=== PATIENT | female | born 1985 | race Caucasian/White ===

== ENCOUNTER 2017-11-11 11:35 | Observation (INO) | payer OTHER ==
[~2017-11-11] VITALS: Ht 162.6 cm; Wt 77.1 kg
== END 2017-11-11 12:45 | disposition home or self-care (01) ==
LOC: SPU 11:38
PROVIDERS: ADMIT Specialist; ATTEND Specialist
DX: O21.2 Late vomiting of pregnancy (principal); Z3A.28 28 weeks gestation of pregnancy
CPT/HCPCS: G0378

== ENCOUNTER 2018-01-09 11:15 | Inpatient (IN) | payer OTHER ==
[~2018-01-09] VITALS: Ht 162.6 cm; Wt 82.6 kg
[2018-01-09] MEDS ORDERED: LR 1,000 ML IV ONE (12:15)
[2018-01-09] MEDS ORDERED: CEFAZOLIN 2 GM IVPB PREMIX 50 ML IV ONE (12:15)
[2018-01-09 12:20] VITALS: BP_SYST 110
[2018-01-09 12:49] LABS: BASOPHILS # (AUTO) 0.1 K/uL (0.0-0.2); BASOPHILS % (AUTO) 1.1 % (0.0-2.0); EOSINOPHILS # (AUTO) 0.1 K/uL (0.0-0.4); EOSINOPHILS % (AUTO) 0.6 % (0.0-4.0); HEMATOCRIT 35.4 % (36-48); HEMOGLOBIN 11.8 g/dL (12.0-16.0); LYMPHOCYTES # (AUTO) 1.8 K/uL (1.0-5.5); LYMPHOCYTES % (AUTO) 15.8 % (20.5-51.5); MEAN CORPUSCULAR HEMOGLOBIN 30 pg (27-31); MEAN CORPUSCULAR HGB CONC 33 % (32-36); MEAN CORPUSCULAR VOLUME 89 fL (79.0-98.0); MONOCYTES # (AUTO) 0.5 K/uL (0.0-1.0); MONOCYTES % (AUTO) 4.4 % (1.7-9.3); NEUTROPHILS # (AUTO) 8.7 K/uL (1.8-7.7); NEUTROPHILS % (AUTO) 78.1 % (40.0-70.0); PLATELET COUNT (AUTO) 220 K/uL (130-430); RED BLOOD CELL COUNT(AUTO) 3.97 MIL/uL (4.2-6.2); RED CELL DISTRIBUTION WIDTH 13.3 % (9.0-15.0); WHITE BLOOD COUNT (AUTO) 11.2 K/uL (4.8-10.8)
[2018-01-09 12:50] LABS: BILIRUBIN,URINE NEGATIVE (NEGATIVE); BLOOD, URINE NEGATIVE (NEGATIVE); COLOR,URINE YELLOW (YELLOW); GLUCOSE,URINE NEGATIVE (NEGATIVE); KETONES,URINE TRACE (NEGATIVE); LEUKOCYTE ESTERASE ,URINE 3+ (NEGATIVE); NITRITE, URINE NEGATIVE (NEGATIVE); PROTEIN URINE NEGATIVE (NEGATIVE); UROBILINOGEN,URINE 0.2 (0.2-1.0)
[2018-01-09 13:00] LABS: CLARITY/URINE HAZY (CLEAR)
[2018-01-09 13:06] LABS: BACTERIA,URINE MODERATE /HPF (None Seen); MUCUS,URINE 1+ /LPF (None Seen); RBC,URINE 0-3 /HPF (0-3)
[2018-01-09] MEDS ORDERED: OXYTOCIN/0.9 % SODIUM CHLORIDE 1,000 ML IV ONE (15:20)
[2018-01-09] MEDS ORDERED: LR 1,000 ML IV SCH (15:20)
[2018-01-09] MEDS ORDERED: DIPH-TET-PERTUS Vaccine 0.5 ML VIAL (ADACEL) I.M. PRN (15:30)
[2018-01-09] MEDS ORDERED: BISACODYL 10 MG/SUPPOSITORY RC PRN (15:30)
[2018-01-09] MEDS ORDERED: RHO(D) IMMUNE GLOBULIN/MALTOSE 1500 UNITS/1.3 ML (WINHRO) IM PRN (15:30)
[2018-01-09] MEDS ORDERED: ANUSOL 1 EA SUPP.RECT (PREPARATION H) RC PRN (15:30)
[2018-01-09] MEDS ORDERED: HYDROcodone/ACETAMIN 5-325 MG TAB (NORCO/ VICODIN) PO PRN (15:30)
[2018-01-09] MEDS ORDERED: LANOLIN 7 GM OINT. TP PRN (15:30)
[2018-01-09] MEDS ORDERED: MEASLES,MUMPS&RUBELLA VACC/PF 12500 UNIT/0.5 ML VIAL SUBQ PRN (15:30)
[2018-01-09] MEDS ORDERED: SENNOSIDES/DOCUSATE SODIUM 1 TAB TABLET(SENOKOT-S) PO PRN (15:30)
[2018-01-09] MEDS ORDERED: NALOXONE HCL 0.4 MG/ML AMP (NARCAN) IVP PRN ×2 (15:45)
[2018-01-09] MEDS ORDERED: DIPHENHYDRAMINE INJ 50 MG/ML VIAL IVP PRN (15:45)
[2018-01-09] MEDS ORDERED: KETOROLAC TROMETHAMINE 60 MG/2 ML VIAL IM PRN (15:45)
[2018-01-09] MEDS ORDERED: ONDANSETRON HCL 4 MG/2 ML VIAL IVP PRN ×2 (15:45)
[2018-01-09] MEDS ORDERED: fentaNYL CITRATE/PF 100 MCG/2 ML AMP IVP PRN ×2 (15:45)
[2018-01-09] MEDS ORDERED: NALBUPHINE HCL 10 MG/ML AMP IVP PRN (15:45)
[2018-01-09] MEDS ORDERED: MORPHINE SULFATE 10MG/10ML PF AMP SP SCH (15:45)
[2018-01-09] MEDS ORDERED: KETOROLAC TROMETHAMINE 30 MG VIAL IVP PRN (15:45)
[2018-01-09 16:21] VITALS: BP_SYST 102
[2018-01-09] MEDS ORDERED: TEMAZEPAM 15 MG CAPSULE PO PRN (21:00)
[2018-01-09] MEDS: CEFAZOLIN 1 GM IVPB PREMIX 50 ML IV SCH (21:50)
[2018-01-10] MEDS ORDERED: KETOROLAC TROMETHAMINE 30 MG VIAL IVP PRN
[2018-01-10] MEDS: CEFAZOLIN 1 GM IVPB PREMIX 50 ML IV SCH ×2 (05:26→10:42)
[2018-01-10 08:16] LABS: HEMOGLOBIN 9.6 g/dL (12.0-16.0); LYMPHOCYTES % (AUTO) 17.2 % (20.5-51.5); MEAN CORPUSCULAR HEMOGLOBIN 29 pg (27-31); MEAN CORPUSCULAR HGB CONC 33 % (32-36); MEAN CORPUSCULAR VOLUME 89 fL (79.0-98.0); MONOCYTES % (AUTO) 5.2 % (1.7-9.3); NEUTROPHILS % (AUTO) 76.3 % (40.0-70.0); PLATELET COUNT (AUTO) 167 K/uL (130-430); RED BLOOD CELL COUNT(AUTO) 3.27 MIL/uL (4.2-6.2); RED CELL DISTRIBUTION WIDTH 13.7 % (9.0-15.0); WHITE BLOOD COUNT (AUTO) 11.7 K/uL (4.8-10.8)
[2018-01-10 08:17] LABS: BASOPHILS % (AUTO) 0.2 % (0.0-2.0); EOSINOPHILS # (AUTO) 0.1 K/uL (0.0-0.4); EOSINOPHILS % (AUTO) 1.1 % (0.0-4.0); MONOCYTES # (AUTO) 0.6 K/uL (0.0-1.0)
[2018-01-10] MEDS: OXYCODONE/ACETAMINOPHEN 5-325 TABLET PO PRN ×3 (09:50→21:56)
[2018-01-10] MEDS: SIMETHICONE 80 MG TAB.CHEW PO PRN (21:37)
[2018-01-10] MEDS: DOCUSATE SODIUM 100 MG CAPSULE PO PRN (21:37)
[2018-01-11] MEDS: IBUPROFEN 600 MG TABLET PO SCH ×3 (00:01→11:54)
[2018-01-11] MEDS: OXYCODONE/ACETAMINOPHEN 5-325 TABLET PO PRN ×6 (01:58→21:00)
[2018-01-11] MEDS: SIMETHICONE 80 MG TAB.CHEW PO PRN (01:58)
[2018-01-11] MEDS ORDERED: OXYCODONE/ACETAMINOPHEN 5-325 TABLET ONE (06:20)
[2018-01-11] MEDS: DOCUSATE SODIUM 100 MG CAPSULE PO PRN (10:17)
[2018-01-11 14:38] LABS: HEMATOCRIT 29.5 % (36-48); HEMOGLOBIN 9.6 g/dL (12.0-16.0)
[2018-01-12] MEDS: OXYCODONE/ACETAMINOPHEN 5-325 TABLET PO PRN ×3 (03:16→12:04)
[2018-01-12] MEDS: IBUPROFEN 600 MG TABLET PO SCH ×2 (06:00→12:03)
== END 2018-01-12 13:05 | disposition home or self-care (01) | DRG 787 ==
LOC: SPU 11:15 → OBSVTOIN 12:10
PROVIDERS: ADMIT Specialist; ATTEND Specialist
PROC: 10D00Z1 Extraction of Products of Conception, Low, Open Approach (ICD-10-PCS; principal; 2018-01-10)
PROC: 3E0334Z Introduction of Serum, Toxoid and Vaccine into Peripheral Vein, Percutaneous Approach (ICD-10-PCS; 2018-01-10)
DX: O32.1XX0 Maternal care for breech presentation, not applicable or unspecified (principal); O41.03X0 Oligohydramnios, third trimester, not applicable or unspecified; O36.5930 Maternal care for other known or suspected poor fetal growth, third trimester, not applicable or unspecified; O36.8130 Decreased fetal movements, third trimester, not applicable or unspecified; O69.81X0 Labor and delivery complicated by cord around neck, without compression, not applicable or unspecified; Z3A.37 37 weeks gestation of pregnancy; Z37.0 Single live birth; O75.89 Other specified complications of labor and delivery
CPT/HCPCS: 36415; 81000-TC; 81002-TC; 85018-TC; 85025; 86592; 86870; 86886; 86900; 86901; 88307; 94760; G0378; J0690; J1200; J1885; J2590; J2790

== ENCOUNTER 2019-05-25 03:47 | Emergency (ER) | payer OTHER ==
[~2019-05-25] VITALS: Ht 162.6 cm; Wt 68.0 kg
[2019-05-25 03:59] VITALS: BP_SYST 110
[2019-05-25] MEDS ORDERED: CLOTRIMAZOLE/BETAMET DIPROP 15 GM TUBE TP ONE (05:15)
[2019-05-25] MEDS ORDERED: TRIAMCINOLONE ACETONIDE 40 MG/ML IM ONE (05:30)
[2019-05-25 05:47] LABS: BILIRUBIN,URINE NEGATIVE (NEGATIVE); BLOOD, URINE 1+ (NEGATIVE); CLARITY/URINE CLEAR (CLEAR); COLOR,URINE YELLOW (YELLOW); GLUCOSE,URINE NEGATIVE (NEGATIVE); KETONES,URINE NEGATIVE (NEGATIVE); LEUKOCYTE ESTERASE ,URINE TRACE (NEGATIVE); NITRITE, URINE NEGATIVE (NEGATIVE); PROTEIN URINE NEGATIVE (NEGATIVE); UROBILINOGEN,URINE 0.2 (0.2-1.0)
[2019-05-25 05:56] LABS: BACTERIA,URINE FEW /HPF (None Seen)
[2019-05-25 06:12] VITALS: BP_SYST 112
== END 2019-05-25 06:12 | disposition home or self-care (01) ==
LOC: SED 03:47
DX: B37.3 Candidiasis of vulva and vagina (principal); L25.9 Unspecified contact dermatitis, unspecified cause; Z88.5 Allergy status to narcotic agent
CPT/HCPCS: 81000; 81025; 87086; 96372; 99283; J3301